=== PATIENT | male | born 1960 | race African-American/Black ===

== ENCOUNTER 2017-02-13 20:26 | Emergency (ER) | payer OTHER ==
[~2017-02-13] VITALS: Ht 188 cm; Wt 114.4 kg
[~2017-02-13 20:26] MED LIST: ALDACTONE50 MG PO; CARDIZEM CD240 MG PO; LOPRESSOR25 MG PO; NORVASC10 MG PO; ZYLOPRIM300 MG PO
[2017-02-13 21:30] LABS: HEMATOCRIT 43.2 % (38.0-50.0); MCH 30.6 PG (29.0-34.0); MCHC 34.7 G/DL (30.0-36.0); MCV 88.2 FL (86-99); MEAN PLAT.VOLUME 9.3 uM^3 (9.0-12.4); PLATELET COUNT 383 K/uL (156-360); RBC DIS.WIDTH-CV 14.6 % (11.8-14.6); WHITE BLOOD COUNT 7.7 K/uL (4.1-10.2)
[2017-02-13 21:45] LABS: CHLORIDE 107 mEq/L (99-109); POTASSIUM 3.6 mEq/L (3.7-5.4); SODIUM 138 mEq/L (136-147)
[2017-02-13 21:47] LABS: GLUCOSE 162 mg/dL (70-99)
[2017-02-13 21:48] LABS: ANION GAP 9 MEQ/L (2-14)
[2017-02-13 21:51] LABS: GFR ESTIMATE (CALCULATED) > 59 mL/min/
[2017-02-13 21:52] LABS: UREA NITROGEN (BUN) 13 mg/dL (9-23)
[2017-02-13 23:08] VITALS: BP 130/82
== END 2017-02-13 23:10 | disposition home or self-care (01) ==
LOC: EME 20:26
PROVIDERS: Emergency Medicine
PROC: 5A2204Z Restoration of Cardiac Rhythm, Single (ICD-10-PCS; principal; 2017-02-13)
DX: I48.91 Unspecified atrial fibrillation (principal); E78.5 Hyperlipidemia, unspecified; I10 Essential (primary) hypertension
CPT/HCPCS: 80048; 85027; 93005; 99281; 99285; J2405